=== PATIENT | female | born 1970 | race Hispanic/Latino ===

== ENCOUNTER 2024-12-25 10:00 | Observation (INO) | payer SELFPAY ==
[2025-01-08] MEDS ORDERED: CEFAZOLIN 1 GM VIAL ONE ×2 (06:46→06:58)
[2025-01-08] MEDS ORDERED: fentaNYL PF 100 MCG/2 ML SYRINGE ONE ×2 (06:57→08:38)
[2025-01-08] MEDS ORDERED: SUGAMMADEX SODIUM 200 MG/2 ML VIAL ONE (06:57)
[2025-01-08] MEDS ORDERED: Rocuronium Bromide 10 MG/ML (10ML VIAL) ONE (06:57)
[2025-01-08] MEDS ORDERED: PROPOFOL 20 ML ONE (06:57)
[2025-01-08] MEDS ORDERED: Ketorolac Tromethamine 30 MG (1 mL) VIAL ONE (06:58)
[2025-01-08] MEDS ORDERED: PHENYLEPHRINE-NS 100 MCG/ML 10 ML SYRINGE ONE (06:58)
[2025-01-08] MEDS ORDERED: Lidocaine 2% PF 100 mg/5 ml Syringe ONE (06:58)
[2025-01-08] MEDS ORDERED: Ondansetron PF 4 MG/2 ML Vial ONE (09:57)
[2025-01-08] MEDS ORDERED: Bupivacaine 0.25% HCL 30 ML VIAL ONE (10:48)
[2025-01-08] MEDS ORDERED: Bisacodyl 10 MG SUPP PR PRN (11:09)
[2025-01-08] MEDS ORDERED: oxyCODONE 5 MG TAB PO PRN ×2 (11:09)
[2025-01-08] MEDS ORDERED: Oxybutynin 5 MG TAB PO PRN (11:09)
[2025-01-08] MEDS ORDERED: Mag-Al 1200 mg/1200 mg/30 ML UDCUP PO PRN (11:09)
[2025-01-08] MEDS ORDERED: diphenhydrAMINE 25 MG CAP PO PRN (11:09)
[2025-01-08] MEDS ORDERED: hydrALAZINE 20 MG/ML VIAL SLOW IVP PRN (11:09)
[2025-01-08 12:07] LABS: Anion Gap 10 mmol/L (10-20); BUN (Urea Nitrogen) 10 mg/dL (9.8-20.1); Calc. Creatinine Clearance 149 mL/min (70-130); Calcium 7.8 mg/dL (7.8-10.44); Carbon Dioxide 22 mmol/L (22-29); Chloride 111 mmol/L (98-107); Glucose 167 mg/dL (70-105); Potassium 3.3 mmol/L (3.5-5.1); Sodium 140 mmol/L (136-145)
[2025-01-08 12:33] LABS: Hematocrit 37.4 % (36.0-47.0); Hemoglobin 12.4 g/dL (12.0-16.0); Mean Corpuscular Hemoglobin 30.2 pg (27.0-31.0); Mean Corpuscular Volume 91.0 fL (78.0-98.0); Platelet Count 151 10x3/uL (130-400); Red Blood Cell (RBC) Count 4.11 mill/uL (4.20-5.40); White Blood Cell (WBC) Count 12.80 10x3/uL (4.8-10.8)
[2025-01-08] MEDS: Acetaminophen 500 MG TAB PO SCH (13:24)
[2025-01-08 13:44] VITALS: BMI 28.5
[2025-01-08] MEDS: Ondansetron PF 4 MG/2 ML Vial IVP PRN (16:05)
[2025-01-09 05:27] LABS: Anion Gap 11 mmol/L (10-20); BUN (Urea Nitrogen) 8 mg/dL (9.8-20.1); Calc. Creatinine Clearance 151 mL/min (70-130); Calcium 8.5 mg/dL (7.8-10.44); Carbon Dioxide 20 mmol/L (22-29); Chloride 114 mmol/L (98-107); Glucose 109 mg/dL (70-105); Potassium 3.6 mmol/L (3.5-5.1); Sodium 141 mmol/L (136-145)
[2025-01-09 05:38] LABS: Hematocrit 37.7 % (36.0-47.0); Hemoglobin 12.3 g/dL (12.0-16.0); Mean Corpuscular Hemoglobin 29.6 pg (27.0-31.0); Mean Corpuscular Volume 90.8 fL (78.0-98.0); Platelet Count 132 10x3/uL (130-400); Red Blood Cell (RBC) Count 4.15 mill/uL (4.20-5.40); White Blood Cell (WBC) Count 15.01 10x3/uL (4.8-10.8)
[2025-01-09 07:14] LABS: Anisocytosis SLIGHT = 6-15 cells HPF (0-5); Macrocytosis SLIGHT = 6-15 cells HPF (0-5); Platelet Adequacy Comment Platelets Normal; Smudge Cells 1.0 %
[2025-01-09 14:57] VITALS: BP 94/53; TEMP 98.7
== END 2025-01-09 16:45 | disposition home or self-care (01) ==
LOC: INTOOBSV 01-08 05:47 → SURG A 01-08 05:47 → SURG B 01-08 13:08
PROVIDERS: ADMIT Urology; ATTEND Urology
PROC: 0TT14ZZ Resection of Left Kidney, Percutaneous Endoscopic Approach (ICD-10-PCS; principal; 2025-01-08)
PROC: 3E0T3BZ Introduction of Anesthetic Agent into Peripheral Nerves and Plexi, Percutaneous Approach (ICD-10-PCS; 2025-01-08)
DX: C64.2 Malignant neoplasm of left kidney, except renal pelvis (principal)
CPT/HCPCS: 36415; 80048; 85025; 85027; 86850; 86900; 86901; 88307; 88341; 88342; A4314; A4333; C1713; C9250-JZ; J0166; J0665; J0690; J1100; J1642; J1885; J2003; J2250; J2405; J2704; J3010; J7030; S2900